=== PATIENT | female | born 1975 | race American Indian/Alaskan Native ===

== ENCOUNTER 2017-05-01 04:36 | Emergency (ER) | payer OTHER ==
--- NOTE | 2017-05-01 04:55 | Emergency Department Report ---
History of Present Illness - General Chief Complaint: Overdose Stated Complaint: POSSIBLE OD Time Seen by Provider: 05/01/17 04:36 Source: patient, EMS Mode of arrival: Stretcher Limitations: No Limitations - History of Present Illness MD Complaint: intentional overdose -: Sudden Intent: suicide attempt, want to go to sleep How Overdose Was Discovered: family/friend present, called 911 Context: Intentional Overdose: relationship problems, work problems, financial issues Associated Symptoms: depression, lethargy Treatments Prior to Arrival: oxygen - Related Data Home Medications Medication Instructions Recorded Confirmed Last Taken ALBUTEROL Inhaler [ProAir HFA 02/21/16 Unknown Inhaler] ALBUTEROL NEB's [Proventil 0.083% 02/21/16 Unknown NEBS] Previous Rx's Medication Instructions Recorded Last Taken Type Acetaminophen/Codeine [Tylenol #3] 1 tab PO Q6H PRN #20 tab 02/21/16 Unknown Rx Cyclobenzaprine [Flexeril] 10 mg PO TID PRN #30 tablet 02/21/16 Unknown Rx Allergies Allergy/AdvReac Type Severity Reaction Status Date / Time aspirin Allergy Shortness Verified 02/21/16 16:27 of Breath ED Review of Systems ROS: Stated complaint: POSSIBLE OD Other details as noted in HPI Comment: All other systems reviewed and negative Constitutional: denies: chills, fever Eyes: denies: eye pain, eye discharge, vision change ENT: denies: ear pain, throat pain Respiratory: denies: cough, shortness of breath, wheezing Cardiovascular: denies: chest pain, palpitations Endocrine: no symptoms reported Gastrointestinal: denies: abdominal pain, nausea, diarrhea Genitourinary: denies: urgency, dysuria, discharge Musculoskeletal: denies: back pain, joint swelling, arthralgia Skin: denies: rash, lesions Neurological: denies: headache, weakness, paresthesias Psychiatric: depression. denies: anxiety Hematological/Lymphatic: denies: easy bleeding, easy bruising ED Past Medical Hx - Surgical History Past Surgical History?: Yes Additional Surgical History: x 3 - Family History Family history: no significant - Social History Smoking Status: Current Some Day Smoker Substance Use Type: Alcohol - Medications Home Medications: Home Medications Medication Instructions Recorded Confirmed Last Taken Type ALBUTEROL Inhaler [ProAir HFA 02/21/16 Unknown History Inhaler] ALBUTEROL NEB's [Proventil 0.083% 02/21/16 Unknown History NEBS] Acetaminophen/Codeine [Tylenol #3] 1 tab PO Q6H PRN #20 tab 02/21/16 Unknown Rx Cyclobenzaprine [Flexeril] 10 mg PO TID PRN #30 tablet 02/21/16 Unknown Rx ED Physical Exam - General Limitations: No Limitations General appearance: alert, in no apparent distress - Head Head exam: Present: atraumatic, normocephalic - Eye Eye exam: Present: normal appearance - ENT ENT exam: Present: mucous membranes moist - Neck Neck exam: Present: normal inspection - Respiratory Respiratory exam: Present: normal lung sounds bilaterally. Absent: respiratory distress - Cardiovascular Cardiovascular Exam: Present: regular rate, normal rhythm. Absent: systolic murmur, diastolic murmur, rubs, gallop - GI/Abdominal GI/Abdominal exam: Present: soft, normal bowel sounds - Extremities Exam Extremities exam: Present: normal inspection - Back Exam Back exam: Present: normal inspection - Neurological Exam Neurological exam: Present: alert, oriented X3 - Psychiatric Psychiatric exam: Present: depressed - Skin Skin exam: Present: warm, dry, intact, normal color. Absent: rash ED Course Vital Signs 05/01/17 05/01/17 05/01/17 04:40 04:44 05:50 Temperature 98.7 F Pulse Rate 83 Respiratory 16 16 Rate Blood Pressure Blood Pressure 102/66 [Left] O2 Sat by Pulse 98 99 Oximetry 05/01/17 05:54 Temperature Pulse Rate 70 Respiratory 27 H Rate Blood Pressure 98/69 Blood Pressure [Left] O2 Sat by Pulse 100 Oximetry - Reevaluation(s) Reevaluation #1: Patient signed out to Dr. Godfrey. 05/01/17 06:29 05/01/17 06:30 ED Medical Decision Making - Lab Data Result diagrams: 05/01/17 05:15 05/01/17 05:15 - EKG Data -: EKG Interpreted by Me EKG shows normal: sinus rhythm Rate: normal - EKG Data Interpretation: no acute changes, normal EKG - Medical Decision Making Patient received from poison control. She'll recommends observing the patient for 12-24 hours or until returns to baseline. 1013 signed - Differential Diagnosis depression, si, suicide attempt Critical care attestation.: If time is entered above; I have spent that time in minutes in the direct care of this critically ill patient, excluding procedure time. ED Disposition Clinical Impression: Overdose of benzodiazepine, Suicide attempt, Depression Disposition: [id number]/TX-65 PSY HOSP/PSY UNIT Is pt being admited?: No Does the pt Need Aspirin: No Condition: Serious Time of Disposition: 06:28 (patient signed out)
[2017-05-01] MEDS ORDERED: NACL 0.9% 1000 ML 1,000 ML IV ONE (04:56)
[2017-05-01] MEDS ORDERED: ACTIDOSE SORBITOL PO ONE (05:03)
--- NOTE | 2017-05-01 05:18 | XRay Report ---
FINAL REPORT EXAM: XR CHEST ROUTINE 2V HISTORY: Overdose TECHNIQUE: AP and lateral chest radiographs PRIORS: None. FINDINGS: No mediastinal shift. Cardiac silhouette is not enlarged. No pneumothorax, effusion, or focal pulmonary opacity. No acute skeletal finding. IMPRESSION: No acute pulmonary finding.
[2017-05-01 05:37] LABS: Basophils # (Auto) 0.1 K/mm3 (0.0-0.1); Basophils % (Auto) 0.8 % (0.0-1.8); Eosinophils # (Auto) 0.2 K/mm3 (0.0-0.4); Eosinophils % (Auto) 2.9 % (0.0-4.3); Hematocrit 39.7 % (30.3-42.9); Hemoglobin 13.2 gm/dl (10.1-14.3); Lymphocytes # (Auto) 2.2 K/mm3 (1.2-5.4); Lymphocytes % (Auto) 28.8 % (13.4-35.0); Mean Corpuscular HGB Conc 33 % (30-34); Mean Corpuscular Hemoglobin 30 pg (28-32); Mean Corpuscular Volume 92 fl (79-97); Monocytes # (Auto) 0.6 K/mm3 (0.0-0.8); Monocytes % (Auto) 8.3 % (0.0-7.3); Platelet Count 263 K/mm3 (140-440); Red Blood Count 4.32 M/mm3 (3.65-5.03); Red Cell Distribution Width 13.6 % (13.2-15.2)
[2017-05-01 06:01] LABS: Alanine Aminotransferase 11 units/L (7-56); Albumin 3.8 g/dL (3.9-5); BUN/Creatinine Ratio 18; Blood Urea Nitrogen 11 mg/dL (7-17); Calcium 8.9 mg/dL (8.4-10.2); Hemolysis Index 3
[2017-05-01 06:05] LABS: Bilirubin,Urine NEG (Negative); Blood,Urine SM (Negative); Color,Urine Yellow (Yellow); Mucus,Urine FEW /HPF; Nitrite,Urine NEG (Negative); Protein,Urine <15 mg/dL mg/dL (Negative); WBC,Urine < 1.0 /HPF (0.0-6.0)
[2017-05-01 06:13] LABS: Amphetamine Screen,Urine PRESUMPTIVE NEGATIVE; Cannabinoid Screen,Urine PRESUMPTIVE NEGATIVE; Cocaine Screen,Urine PRESUMPTIVE NEGATIVE; Methadone Screen,Urine PRESUMPTIVE NEGATIVE; Opiate Screen,Urine PRESUMPTIVE NEGATIVE
[2017-05-01 06:26] LABS: Benzodiazepines Screen,Urine PRESUMPTIVE POSITIVE
--- NOTE | 2017-05-02 14:28 | Consultation ---
History of Present Illness - Reason for Consult Consult date: 05/02/17 Reason for consult: Mental Health Evaluation Requesting physician: GUILLERMO RODARTE III - Chief Complaint Chief complaint: "I am sorry" - History of Present Psychiatric Illness 41 y.o. AA female presenting to [facility] for suicide attempt by overdose. Today the patient is calm and cooperative during the assessment. She stated that she got into an argument with her girlfriend on the phone. She stated after she hung up the phone she decided to take multiple Xanax pills. She could not state the amount of pills she took, but she stated, "It was a couple of pills." She stated going through a lot of life stressors recently. She stated that her son was killed in a MVC in September 2016. She stated that she worried a lot about the safety of her other children since the of her oldest child. She admitted to being sad and hopeless since the of her son. She did state a previous suicide attempt at the age of 23 and was hospitalized at [facility]. She stated that she only wanted to go to sleep when she took the Xanax pill. She stated, "I shouldn't have took so many pills." When she was asked how did she get to the hospital, she stated, "I don't know." She denies SI/HI's and AVH's. She denies a poor appetite and erratic sleep. She rate her anxiety 7/10, with 10 being the worse. She denies recreational drug use and excessive alcohol consumption (etoh). She stated that she does not take Xanax often, which was prescribed by her PCP. Medications and Allergies Allergies Allergy/AdvReac Type Severity Reaction Status Date / Time aspirin Allergy Shortness Verified 02/21/16 16:27 of Breath Home Medications Medication Instructions Recorded Confirmed Last Taken Type ALBUTEROL Inhaler [ProAir HFA 02/21/16 Unknown History Inhaler] ALBUTEROL NEB's [Proventil 0.083% 02/21/16 Unknown History NEBS] Acetaminophen/Codeine [Tylenol #3] 1 tab PO Q6H PRN #20 tab 02/21/16 Unknown Rx Cyclobenzaprine [Flexeril] 10 mg PO TID PRN #30 tablet 02/21/16 Unknown Rx Past psychiatric history - Past Medical History Past Medical History: No medical history Past Surgical History: - past Psychiatric treatment and history psychiatric treatment history: Inpatient at [facility] when the patient was 23. Denies a fam psy hx. - Social History Social history: lives with family Mental Status Exam - Vital signs Last Vital Signs Temp 97.9 F 05/02/17 07:47 Pulse 63 05/02/17 07:47 Resp 14 05/02/17 07:47 BP 96/62 05/02/17 07:47 Pulse Ox 100 05/02/17 07:47 - Exam Narrative exam: MSE: Appearance: calm, cooperative Behavior: regular eye contact Speech: regular rate and tone Mood: "okay" withdrawn Affect: congruent to mood Thought Process: circumstantial Thought Content: denies SI/HI's and AVH's Motor Activity: ambulatory Cognition: A/O x 3 Insight: variable Judgment: variable Results Result Diagrams: 05/01/17 05:15 05/01/17 05:15 All other labs normal. Assessment and Plan Assessment and plan: Impression: MDD, Severe Type Recurrent. JESSICA. Today the patient is calm and cooperative during the assessment. DDx: R/O Bipolar DO, Adjustment DO Recommendation/Plan: Continue 1013 with placement to inpatient psy services. Start Prozac 20 mg PO daily for depression/anxiety and Vistaril 25 mg PO Q6hrs PRN for anxiety. Discussed possible suicidality/medication induced louann with patient reference Prozac.
--- NOTE | 2017-05-02 14:58 | Consultation ---
History of Present Illness - Reason for Consult Consult date: 05/02/17 Reason for consult: Mental Health Evaluation Requesting physician: WELLINGTON MASSEY - Chief Complaint Chief complaint: "I am sorry" Medications and Allergies Allergies Allergy/AdvReac Type Severity Reaction Status Date / Time aspirin Allergy Shortness Verified 02/21/16 16:27 of Breath Home Medications Medication Instructions Recorded Confirmed Last Taken Type ALBUTEROL Inhaler [ProAir HFA 02/21/16 Unknown History Inhaler] ALBUTEROL NEB's [Proventil 0.083% 02/21/16 Unknown History NEBS] Acetaminophen/Codeine [Tylenol #3] 1 tab PO Q6H PRN #20 tab 02/21/16 Unknown Rx Cyclobenzaprine [Flexeril] 10 mg PO TID PRN #30 tablet 02/21/16 Unknown Rx Active Meds: Active Medications Fluoxetine HCl (Prozac) 20 mg PO DAILY ELIZABETH Hydroxyzine Pamoate (Vistaril) 25 mg PO ONCE PRN PRN Reason: Anxiety Past psychiatric history - Social History Social history: lives with family Mental Status Exam - Vital signs Last Vital Signs Temp 97.9 F 05/02/17 07:47 Pulse 63 05/02/17 07:47 Resp 14 05/02/17 07:47 BP 96/62 05/02/17 07:47 Pulse Ox 100 05/02/17 07:47 Results Result Diagrams: 05/01/17 05:15 05/01/17 05:15 All other labs normal.
[2017-05-02] MEDS: PROzac PO SCH (15:20)
[2017-05-03] MEDS ORDERED: ALUM-MAG HYDROX-SIMETH 200-200-20MG/5ML ONE (08:27)
[2017-05-03] MEDS: PROzac PO SCH (10:12)
[2017-05-04] MEDS ORDERED: TUMS PO ONE (00:13)
[2017-05-04] MEDS: VISTARIL PO PRN ×3 (04:31→22:03)
[2017-05-04] MEDS: PROzac PO SCH (11:48)
--- NOTE | 2017-05-04 21:40 | Progress Note ---
Subjective - Reason for Consult Consult date: 05/04/17 Reason for consult: follow up - Chief Complaint Chief complaint: "I'm much better." 41 y.o. AA female presenting to [facility] for suicide attempt by overdose. Today the patient is calm and cooperative during the assessment. She stated that she got into an argument with her girlfriend on the phone. She stated after she hung up the phone she decided to take multiple Xanax pills. She reports taking 3-5 pills. She stated going through a lot of life stressors recently. She stated that her son was killed in a MVC in September 2016. She stated that she worried a lot about the safety of her other children since the of her oldest child. She admitted to being sad and hopeless since the of her son. She denies suicidal ideation. She states she did not want to when she took the pills. She denies SI/HI's and AVH's. She stated that she does not take Xanax often, which was prescribed by her PCP. Mental Status Exam - Vital signs Last Vital Signs Temp 98.1 F 05/04/17 19:10 Pulse 68 05/04/17 19:10 Resp 16 05/04/17 19:10 BP 117/70 05/04/17 19:10 Pulse Ox 98 05/04/17 19:10 - Exam Narrative exam: Appearance: calm, cooperative Behavior: regular eye contact Speech: regular rate and tone Mood: "much better" Affect: congruent to mood Thought Process: circumstantial Thought Content: denies SI/HI's and AVH's Motor Activity: ambulatory Cognition: A/O x 3 Insight: variable Judgment: variable Assessment and Plan Impression: MDD, Severe Type Recurrent. JESSICA. Today the patient is calm and cooperative during the assessment. No suicidal ideation reported. DDx: R/O Bipolar DO, Adjustment DO Recommendation/Plan: Consider rescinding 1013 if appropriate resources for oupatient mental health are provided. Continue Prozac 20 mg PO daily for depression/anxiety and Vistaril 25 mg PO Q6hrs PRN for anxiety.
[2017-05-05] MEDS: PROzac PO SCH (10:16)
--- NOTE | 2017-05-05 10:44 | Progress Note ---
Subjective - Reason for Consult Consult date: 05/05/17 Reason for consult: Psychiatry Follow-up - Chief Complaint Chief complaint: "Hello" 41 y.o. AA female presenting to [facility] for suicide attempt by overdose. Today the patient is cooperative, but irritable during the assessment. 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 She is minimizing her actions that caused her to be hospitalized. She stated that she wasn't trying to kill herself. She could not tell me how she would handle a crisis if this happens again. This patient has a hx of suicide attempt. She denies SI/HI's and AVH's. She denies any side effects of her medications. Mental Status Exam - Vital signs Last Vital Signs Temp 98.3 F 05/05/17 08:38 Pulse 69 05/05/17 08:38 Resp 18 05/05/17 08:38 BP 118/64 05/05/17 08:38 Pulse Ox 98 05/05/17 08:38 - Exam Narrative exam: MSE: Appearance: cooperative Behavior: regular eye contact Speech: regular rate and tone Mood: irritable Affect: congruent to mood Thought Process: circumstantial Thought Content: denies SI/HI's and AVH's Motor Activity: ambulatory Cognition: A/O x 3 Insight: variable Judgment: variable Assessment and Plan Impression: MDD, Severe Type Recurrent. JESSICA. Today the patient is calm and cooperative during the assessment. DDx: R/O Bipolar DO, Adjustment DO Recommendation/Plan: Continue 1013 with pending placement to [facility]. Continue Prozac 20 mg PO daily for depression/anxiety and Vistaril 25 mg PO Q6hrs PRN for anxiety. Discussed possible suicidality/medication induced louann with patient reference Prozac.
[2017-05-05] MEDS: VISTARIL PO PRN (22:05)
[2017-05-06 09:05] VITALS: BP 124/70
--- NOTE | 2017-05-06 10:19 | Progress Note ---
Subjective - Reason for Consult Consult date: 05/06/17 Reason for consult: Psychiatry Follow-up - Chief Complaint Chief complaint: "Good morning" 41 y.o. AA female presenting to [facility] for suicide attempt by overdose. Today the patient is cooperative, but irritable during the assessment. The patient apologized for her behavior yesterday, she stated, "I was upset, I wanted to go home." She stated that she did a lot of reflecting reference her decision making prior to her admission to the hospital. She stated that she would benefit from speaking with a therapist reference the of son. She stated that she look forward to being discharged and getting her life together. She rate her depression/anxiety 0/10, with 10 being the worse. She denies SI/HI's and AVH's. She denies any side effects of her medications. Per collateral information from Silvia Kwon [phone], the patient's domestic partner, she stated that she feel like the patient didn't try to kill herself prior to her admission to the hospital. She did state that she felt like the patient was stressed at the time. She stated that the patient would benefit from therapy sessions. She stated that the patient can return home once discharged. Mental Status Exam - Vital signs Last Vital Signs Temp 98.0 F 05/06/17 09:04 Pulse 66 05/06/17 09:04 Resp 20 05/06/17 09:05 BP 124/70 05/06/17 09:04 Pulse Ox 99 05/06/17 09:05 - Exam Narrative exam: MSE: Appearance: calm, cooperative Behavior: regular eye contact Speech: regular rate and tone Mood: irritable Affect: congruent to mood Thought Process: linear Thought Content: denies SI/HI's and AVH's Motor Activity: ambulatory Cognition: A/O x 3 Insight: appropriate Judgment: appropriate Assessment and Plan Impression: MDD, Severe Type Recurrent. JESSICA. Today the patient is calm and cooperative during the assessment. Patient is no threat to self. DDx: R/O Bipolar DO, Adjustment DO I. This screening and assessment is based on information collected from the following sources: II. SUICIDE RISK SCREENING (within last 30 days): A.) Suicidal thoughts/behaviors: Pateint denies SUICIDE RISK ASSESSMENT III. FACTORS THAT INCREASE RISK: A.) Demographic and Substance Use Factors: None B.) Current/Recent Factors (within past 3 months): Psychosocial/Environmental Factors: Son in MVA in 2016 Physical Illness: None Cognitive/Psychological Factors: None C.) Historical Factors: None D.) Diagnostic/Symptom/Treatment Factors: None E.) Acute Risk Factor Severity (DESC; MILD/MOD/SEVERE): Mild Other factors for this individual that increase risk: None IV. FACTORS THAT DECREASE RISK: Resilience/Protective Factors: Patient want to decrease her stress Other factors for this individual that decrease risk: Patient denies a desire to harm self V. Clinician's Formulation of Risk and Determination of level of Care: This is a 41-year-old AA female who took multiple Xanax pills because she wanted to sleep, but admitted to being stressed out. She is now mindful that her actions prior to her admission was a bad decision. She is adamant that she did not want to kill herself when she took the pills. She stated that she will follow-up with an psychiatrist for outpatient psy services to manage her depression and see a therapist reference the of her son. Since being hospitalized, the patient has consistently denied the desire to harm herself. Additionally, she has become insightful about how to better address her current issues. Patient is not impaired by substance. She is able to take care of her ADLs and is not at imminent risk of harm to self or others. Consequently, it is the opinion of the treatment team that the patient is at low risk of suicide and does not meet criteria to continue an involuntary psychiatric hold. Estimation of Imminent Risk: Low due to the above explanation. Determination of Level of Care based on Suicide Risk: Outpatient follow-up. Narrative description of clinical reasoning. (This must be completed on all patients): . Plan and Interventions based on Suicide Risk: This patient will likely be stepped down to an outpatient mental health center in the community upon discharge and follow-up within 7 days of her discharge from the hospital. VII. Discharge/After Hours Support Plan: Patient can return back to the ER, call 911 or crisis line if symptoms of depression, anxiety, suicidality return. Recommendation/Plan: Rescind 1013. Continue Prozac 20 mg PO daily for depression /anxiety. Discussed possible suicidality/medication induced louann with patient reference Prozac. Patient given outpatient psy services for [facility]. Discussed the importance to take medication as prescribed. Safety Contract completed with patient.
[2017-05-06] MEDS: PROzac PO SCH (10:55)
== END 2017-05-06 13:25 ==
LOC: ED 04:36 → EEVIPCON 04:36 → ED 05-06 13:25
DX: T42.4X2A Poisoning by benzodiazepines, intentional self-harm, initial encounter (principal); F32.9 Major depressive disorder, single episode, unspecified; F17.200 Nicotine dependence, unspecified, uncomplicated; Z88.6 Allergy status to analgesic agent; Y92.89 Other specified places as the place of occurrence of the external cause
CPT/HCPCS: 36415; 71046; 80053; 80307; 81001; 85025; 93005; 93010; 96360; 99285; G0480; J7030; 80320; Q0177